=== PATIENT | female | born 1965 | race Two or more races ===

== ENCOUNTER 2019-05-26 10:11 | Day surgery (SDC) | payer OTHER ==
[~2019-05-26] VITALS: Ht 157.5 cm; Wt 66.9 kg
[~2019-05-26 10:11] MED LIST: OMEPRAZOLE; SIMVASTATIN
[2019-05-26] MEDS ORDERED: LIDOCAINE 4% SOLUTION 50 ML BTL ONE (10:38)
[2019-05-26 10:40] VITALS: Ht 157.5 cm; Wt 66.9 kg
[2019-05-26 10:42] VITALS: BP 107/59; PULSE 71; RESP 15
[2019-05-26 11:35] VITALS: BP 109/64; RESP 16
[2019-05-26] MEDS ORDERED: MIDAZOLAM 1 MG/ML 2 ML INJ ONE ×2 (11:36)
[2019-05-26] MEDS ORDERED: FENTAnyl 50 MCG/ML VIAL ONE (11:37)
== END 2019-05-26 13:27 | disposition home or self-care (01) ==
LOC: GIL 10:11
PROVIDERS: ATTEND Internal Medicine Gastroenterology
DX: K29.30 Chronic superficial gastritis without bleeding (principal); Z80.0 Family history of malignant neoplasm of digestive organs
CPT/HCPCS: 43239; 88305; 88312; J2250; J3010; Z7610